=== PATIENT | male | born 1960 | race Caucasian/White ===

== ENCOUNTER → 2019-02-03 | Outpatient (REF) | payer OTHER ==
[~2019-02-03] MED LIST: ANAS0.12; ASPI325T; ATEN50TA2; FLOM0.4C39; GREEN TEA EXTRACT; KLON1TAB; LISI20TA5; LUNE2TAB; NEUR300C; OXYC5CAP4; PRAV40TA; REST30CA; RYZOLT; SERO1TAB; THERGRAN; VICO5TAB; VITA100C7; VITA400C; VITAMIN D50000 UNT; VITATAB38
== END ==
LOC: M LAB REF 11:58
PROVIDERS: ATTEND Internal Medicine
DX: Z79.899 Other long term (current) drug therapy (principal)

== ENCOUNTER → 2019-04-28 | Outpatient (REF) | payer OTHER | LOC: M LAB REF 10:08 | PROVIDERS: ATTEND Physician Assistant Medical | DX: J02.9 Acute pharyngitis, unspecified (principal) ==

== ENCOUNTER 2019-05-24 12:39 | Emergency (ER) | payer OTHER ==
[~2019-05-24] VITALS: Ht 172.7 cm; Wt 94.2 kg
[2019-05-24 14:03] LABS: ALBUMIN 4.4 GM/DL (3.2-5.2); BILIRUBIN,DIRECT 0.5 MG/DL (0.0-0.2); BILIRUBIN,TOTAL 3.8 MG/DL (0.2-1.0); CALCIUM LEVEL 9.1 MG/DL (8.8-10.2); CREATININE FOR GFR 1.65 MG/DL (0.70-1.30); GLOMERULAR FILTRATION RATE 45.5 (>49); POTASSIUM SERUM 3.7 MEQ/L (3.5-5.1); TOTAL PROTEIN 7.6 GM/DL (6.4-8.2)
[2019-05-24 14:07] LABS: BASO % 0.4 % (0.0-1.0); EOS % 0.2 % (0.0-3.0); HEMATOCRIT 43.6 % (42.0-52.0); HEMOGLOBIN 16.3 g/dl (13.5-17.5); LYMPH % 12.5 % (24.0-44.0); MEAN CORPUSCULAR HEMOGLOBIN 32.1 pg (27.0-33.0); MONO # 0.9 10^3/uL (0.0-0.8); MONO % 10.3 % (0.0-5.0); NEUTROPHILS # 6.3 10^3/uL (1.8-7.7); NEUTROPHILS % 76.2 % (36.0-66.0); PLATELET COUNT, AUTOMATED 243 10^3/uL (150-450); RED BLOOD COUNT 5.07 10^6/uL (4.30-6.10); WHITE BLOOD COUNT 8.2 10^3/uL (4.0-10.0)
[2019-05-24 14:10] LABS: MEAN CORPUSCULAR HGB CONC 37.4 g/dl (32.0-36.5)
[2019-05-24] MEDS ORDERED: ONDANSETRON 4MG/2ML VIAL (J2405) IV ONE (14:15)
[2019-05-24] MEDS ORDERED: KETOROLAC 30 MG/ML VIAL (J1885) IV ONE (14:15)
[2019-05-24] MEDS ORDERED: NS 1,000 ML IV ONE (14:45)
[2019-05-24] MEDS: GASTROGRAFIN SOLUTION 30ML PO SCH ×2 (14:52→15:36)
[2019-05-24] MEDS ORDERED: clonazePAM 1 MG TAB PO ONE (17:15)
[2019-05-24] MEDS ORDERED: BAYE325T16 PO (17:48)
[2019-05-24] MEDS ORDERED: LUTE20TA2 PO (17:48)
[2019-05-24] MEDS ORDERED: VITMTA PO (17:48)
[2019-05-24] MEDS ORDERED: LISI10TA4 PO (17:48)
[2019-05-24] MEDS ORDERED: ALLO100T PO (17:48)
[2019-05-24] MEDS ORDERED: ATOR1TAB21 PO (17:48)
[2019-05-24] MEDS ORDERED: ROCA0.5C PO (17:48)
[2019-05-24] MEDS ORDERED: DESV50TA PO (17:48)
[2019-05-24] MEDS ORDERED: FISH1000 PO (17:48)
[2019-05-24] MEDS ORDERED: POTA10TA17 PO (17:48)
[2019-05-24 19:25] VITALS: BP 158/93
--- NOTE | 2019-05-24 19:56 | HPEPDOC ---
General Date of Admission CONSULT NOTE FOR EMERGENCY ROOM - (not H&P) 05/24/19 Date of Service: May 24, 2019 Primary Care Physician: Carley Angelo Other Providers Dr Amato (nephrolgoy), Dr Grant (psychiatry-[place]) Chief Complaint The patient is a 58-year-old male admitted with a reason for visit of Rectal Pain. Source: Patient, Family Exam Limitations: No limitations History of Present Illness 58yo male presented to ED with episode of rectal pain similar to 10-12 years ago (at that time- rectal pain relief obtained with klonopin) Information obtained from patient and . Patient states he had been on klonopin 3-4 x a day until 3 weeks ago when he weaned himself off. His last dose was on 05/11/19. On 05/13/19, he had increased rectal pain , sharp with shooting pain across lower abdomen. States thought it was related to constipation (chronic over pasts 5 months) and used a colon cleanse in the shower "a few times" without relief. States he was able to feel a "lump that was bigger than my hemorrhoids" but no blood or diarrhea. Does not know when last colonscopy was. States pain is now constant with intermittent sharp shooting episode lasting 45-60 minutes.He states no sleep for past 1-2 nights because pain worsening. he states tried miralax, senna and enemas without relief. he states no nausea, no vomiting, no fever, no CP, no SOB, no symptoms. States urinary frequency because he has been increasing water intake in anticipation of nephrology appointment in June. He states intentional weight loss of 200 pounds over past 18 months with diet changes. He states he has a history of low sodium in past that is follow by Dr Amato and he has been instructed to eat extra salt. In the ED, patient was found to have hyponatremia (124) and given 1 liter IVF (NS). Hospitalist notified to admit patient for further treatment of his hyponatremia. Patient states his hyponatremia is chronic and he has a treatment session scheduled for Saturday thru Saturday with psychiatry in [place] that he can not miss. Home Medications Scheduled Aspirin (Aspirin) 325 Mg Tablet, 325 MG PO DAILY, (Reported) Atorvastatin Calcium (Atorvastatin Calcium) 20 Mg Tablet, 20 MG PO QHS, (Reported) Calcitriol (Rocaltrol) 0.5 Mcg Capsule, 0.5 MCG PO 3XW, (Reported) SAT/SAT/SAT Desvenlafaxine (Desvenlafaxine ER) 50 Mg Tab.er.24h, 50 MG PO DAILY, (Reported) Lisinopril (Lisinopril) 10 Mg Tablet, 10 MG PO BID, (Reported) Lutein (Lutein) 20 Mg Tablet, 20 MG PO DAILY, (Reported) Multivitamins (Thera M Plus Tablet) 1 Each Tablet, 1 TAB PO DAILY, (Reported) [place]-3 Fatty Acids/Fish Oil (Fish Oil 1,000 mg Capsule) 1 Each Capsule, 1,000 MG PO DAILY, (Reported) Potassium Chloride (Potassium Chloride) 10 Meq Tab.er.prt, 10 MEQ PO QHS, (Reported) Scheduled PRN Allopurinol (Allopurinol) 100 Mg Tablet, 100 MG PO DAILY PRN for GOUT FLARE, (Reported) Allergies Coded Allergies: Sulfa (Sulfonamide Antibiotics) (Verified Allergy, Unknown, hives, 05/24/19) Past Medical History Medical History Hemorrhoids Anxiety Depression Benign essential tremor CKD stage III NIDDM - diet controlled HTN Past surgical history: none Family history: father with diabetes; paternal aunts with diabetes Social history: , no tobacco, no etOH A-FIB/CHADSVASC A-FIB History Current/History of A-Fib/PAF?: No Review of Systems Other systems 10 comprehensive systems reviewed and negative except as per HPI Physical Examination General Exam: Positive: Alert, Cooperative, No Acute Distress Eye Exam: Positive: PERRLA, Conjunctiva & lids normal, EOMI ENT Exam: Positive: Atraumatic, Mucous membr. moist/pink Neck Exam: Positive: Supple, +2 carotid pulse wo bruit Chest Exam: Positive: Clear to auscultation, Normal air movement; Negative: Rales, Rhonchi, Wheezing Heart Exam: Positive: Rate Normal, Normal S1, Normal S2, Other (no murmur) Abdomen Exam: Positive: Normal bowel sounds, Soft (non tender, non distended; RECTAL EXAM- per ED note (verbal report negative) ) Extremity Exam: Positive: Normal pulses; Negative: Clubbing, Cyanosis, Edema Skin Exam: Positive: Nl turgor and temperature Neuro Exam: Positive: Normal Speech, Strength at 5/5 X4 ext, Normal Tone, Sensation Intact Psych Exam: Positive: Mental status NL, Mood NL, Anxiety, Memory Intact, Oriented x [address] ABD/PEL prelim read: NO OBSTRUCTION. No CT evidence of appendicitis OR ACUTE INFLAMMATION OR FREE AIR OR FLUID. UMBILICAL HERNIA CONTAINING FAT, NO STRANGULATION. NO INCARCERATION HERNIATED UMBILICAL FAT IS PULLING SIGMOID COLON TO APERATURE OF UMBILICAL HERNIA . FEW SUBCM GALLSTONES OR POLYPS IN NONINFLAMED GALLBLADDER [email or web address], ( Douglas, Jhonny )- 05/24/2019 4:16:29 PM Vital Signs Vital Signs Date Time Temp Pulse Resp B/P (MAP) Pulse Ox O2 Delivery O2 Flow Rate FiO2 05/24/19 17:26 99.1 79 18 192/101 (131) 100 Room Air Laboratory Data Labs 24H Laboratory Tests 2 05/24/19 13:31: Immature Granulocyte % (Auto) 0.4, White Blood Count 8.2, Red Blood Count 5.07, Hemoglobin 16.3, Hematocrit 43.6, Mean Corpuscular Volume 86.0, Mean Corpuscular Hemoglobin 32.1, Mean Corpuscular Hemoglobin Concent 37.4H, Red Cell Distribution Width 11.9, Platelet Count 243, Neutrophils (%) (Auto) 76.2H, Lymphocytes (%) (Auto) 12.5L, Monocytes (%) (Auto) 10.3H, Eosinophils (%) (Auto) 0.2, Basophils (%) (Auto) 0.4, Neutrophils # (Auto) 6.3, Lymphocytes # (Auto) 1.0L, Monocytes # (Auto) 0.9H, Eosinophils # (Auto) 0.0, Basophils # (Auto) 0.0, Nucleated Red Blood Cells % (auto) 0.0, Anion Gap 14, Glomerular Filtration Rate 45.5L, Calcium Level 9.1, Aspartate Amino Transf (AST/SGOT) 22, Alanine Am inotransferase (ALT/SGPT) 25, Alkaline Phosphatase 36L, Total Bilirubin 3.8H, Direct Bilirubin 0.5H, Total Protein 7.6, Albumin 4.4, Albumin/Globulin Ratio 1.38, Lipase 264 05/24/19 13:51: Urine Color YELLOW, Urine Appearance CLEAR, Urine pH 6.0, Urine Specific [place] 1.006, Urine Protein NEGATIVE, Urine Glucose (UA) NEGATIVE, Urine Ketones 1+H, Urine Blood NEGATIVE, Urine Nitrite NEGATIVE, Urine Bilirubin NEGATIVE, Urine Urobilinogen 0.2, Urine Leukocyte Esterase NEGATIVE, Urine WBC (Auto) 0, Urine RBC (Auto) 2, Urine Hyaline Casts (Auto) 0, Urine Bacteria (Auto) NEGATIVE, Urine Squamous Epithelial Cells 0, Urine Amorphous Sediment SMALLH, Urine Sperm (Auto) CBC/BMP Laboratory Tests 05/24/19 13:31 Red Blood Count 5.07, Mean Corpuscular Volume 86.0, Mean Corpuscular Hemoglobin 32.1, Mean Corpuscular Hemoglobin Concent 37.4 H, Red Cell Distribution Width 11.9, Neutrophils (%) (Auto) 76.2 H, Lymphocytes (%) (Auto) 12.5 L, Monocytes (%) (Auto) 10.3 H, Eosinophils (%) (Auto) 0.2, Basophils (%) (Auto) 0.4, Neutrophils # (Auto) 6.3, Lymphocytes # (Auto) 1.0 L, Monocytes # (Auto) 0.9 H, Eosinophils # (Auto) 0.0, Basophils # (Auto) 0.0 Assessment/Plan 1) proctodynia 2) Constipation / hemorrhoids with question of subjective rectal mass 3) hyponatremia due to water intoxication 4) diabetes - diet controlled not on nursing home insulin 5) CKD III 6) elevated bilirubin (possible gilbert from fasting state) 7) incidental umbilical hernia and non obstructing gallstones Plan / VTE VTE Prophylaxis Ordered?: No Plan Plan Offered to admit patient, fluid restrict for 24 hours and repeat lab in 24 hour for sodium. Patient declined due to important appointment/procedure in [place] (see H&P). He states his hyponatremia is chronic , has appointment with nephrology in next 2 weeks . He has agreed to limit his water intake over the next 24 hours to 1 liter (approx 5 cups fluid/day) and to repeat CMP on saturday with follow up at Dr Angelo office. Written and verbal instructions given to pateint and and they demonstrated good verbal understanding. Discussed with patient potential effects of hyponatremia (ie seizures, fatigue, etc) and risks vs benefits of discharge from ED today. As for his proctodynia, advised to take 1 klonopin pill tonight and follow up with psychiatry regarding klonopin use and fast taper. Discussed other treatment modalities including Nitropaste ointment CT. Declines treatment at this time. Discussed with patient that he should have GI follow up (because of constipation , hemorrhoids and questionable subjective rectal mass) but that this can be arranged thru his PCP office as patient is declining admission. Advised that if he develops rectal bleeding to return to ED. Patient is being discharged in stable condition with written instructions and copy of his labs. Instructions: 1) fluid restrict x 24 hours to 1 liter 2) Saturday05/26/19 non fasting lab (CMP) 3) follow up with Dr Angelo this week 4) keep appointment with psychiatry for procedure this week 5) keep appointment with nephrology 6) return if ED if seizures, worsening pain or rectal bleeding Patient seen and evaluated from 1800 to 1840 ARTHUR CARCMAO DO May 24, 2019 17:38
--- NOTE | 2019-05-25 09:42 | REP ---
CT ABDOMEN AND PELVIS WITH ORAL AND IV CONTRAST: CT ABDOMEN AND PELVIS WITH AND WITHOUT CONTRAST: TECHNIQUE: Axial noncontrast images through the abdomen followed by contrast-enhanced images through the abdomen and pelvis using 100 mL Isovue 370 intravenous contrast material, with coronal and sagittal reformations. Visualized lung bases demonstrate no infiltrate. Fracture of the lower left ribs is noted. No mass is seen in the liver. There are a few hyperdensities along the inner wall of the gallbladder representing a few small gallstones or polyps. The spleen is unremarkable and normal in size. The adrenals and pancreas are unremarkable. Lobulations are seen of the renal cortex bilaterally. There is a left renal cyst laterally and somewhat inferiorly measuring 3 cm in diameter. There is no hydronephrosis. There is atherosclerotic calcification of the abdominal aorta without aneurysm. There is no adenopathy. There is no free air or free fluid. There is no bowel wall thickening. There is no evidence of appendicitis. There is an umbilica hernia containing fat without evidence of incarceration. The urinary bladder is mildly distended and grossly unremarkable. There are degenerative changes of the spine. The sigmoid colon is noted to be displaced to the anterior abdominal wall region at the aperture of the umbilical hernia. The herniated fat is pulling the sigmoid colon to this location. IMPRESSION: No evidence of acute appendicitis or acute bowel inflammation. No free air or free fluid. Umbilical hernia containing fat without evidence of strangulation. There are a few subcentimeter gallstones or polyps in the gallbladder without gallbladder wall edema or biliary dilatation. The sigmoid colon is noted to be displaced to the anterior abdominal wall region at the aperture of the umbilical hernia. The herniated fat is pulling the sigmoid colon to this location. Electronically Signed by Robi Lockhart MD 05/26/2019 01:19 P
== END 2019-05-24 19:27 | disposition home or self-care (01) ==
LOC: M ED 12:39
DX: E87.1 Hypo-osmolality and hyponatremia (principal); R10.9 Unspecified abdominal pain; K80.10 Calculus of gallbladder with chronic cholecystitis without obstruction; K62.89 Other specified diseases of anus and rectum; K64.9 Unspecified hemorrhoids; K59.00 Constipation, unspecified; E80.6 Other disorders of bilirubin metabolism; K42.9 Umbilical hernia without obstruction or gangrene; F41.9 Anxiety disorder, unspecified; F32.9 Major depressive disorder, single episode, unspecified; G25.0 Essential tremor; N18.3 Chronic kidney disease, stage 3 (moderate); E11.22 Type 2 diabetes mellitus with diabetic chronic kidney disease; I12.9 Hypertensive chronic kidney disease with stage 1 through stage 4 chronic kidney disease, or unspecified chronic kidney disease; Z88.2 Allergy status to sulfonamides; N40.0 Benign prostatic hyperplasia without lower urinary tract symptoms; E78.9 Disorder of lipoprotein metabolism, unspecified; M54.5 Low back pain; Z79.899 Other long term (current) drug therapy; Z79.82 Long term (current) use of aspirin; Z87.891 Personal history of nicotine dependence
CPT/HCPCS: 74177; 80048; 80076; 81001; 83690; 85025; 96361; 96374; 96375; 99284; J1885; J2405; Q9963

== ENCOUNTER → 2019-06-04 | Outpatient (REF) | payer OTHER ==
[~2019-06-04] MED LIST changes: +ALLO100T PO; +ATOR1TAB21 PO; +BAYE325T16 PO; +DESV50TA PO; +FISH1000 PO; +LISI10TA4 PO; +LUTE20TA2 PO; +POTA10TA17 PO; +ROCA0.5C PO; +VITMTA PO
[2019-06-04 18:47] LABS: FREE T4 1.38 NG/DL (0.76-1.46); THYROID STIMULATING HORMONE 1.17 uIU/ML (0.358-3.740)
== END ==
LOC: M LAB REF 17:08
PROVIDERS: ATTEND Internal Medicine Nephrology
DX: E03.9 Hypothyroidism, unspecified (principal); E66.09 Other obesity due to excess calories

== ENCOUNTER → 2019-08-17 | Outpatient (REF) | payer OTHER | LOC: M LAB REF 16:45 | PROVIDERS: ATTEND Internal Medicine | DX: M10.9 Gout, unspecified (principal) ==

== ENCOUNTER → 2019-12-21 | Outpatient (REF) | payer OTHER ==
[2019-12-22 11:26] LABS: FOLATE 16.1 NG/ML; VITAMIN B12 LEVEL 1082 PG/ML
== END ==
LOC: M LAB REF 16:17
PROVIDERS: ATTEND Internal Medicine
DX: G31.83 Neurocognitive disorder with Lewy bodies (principal); F02.80 Dementia in other diseases classified elsewhere, unspecified severity, without behavioral disturbance, psychotic disturbance, mood disturbance, and anxiety

== ENCOUNTER 2020-03-25 16:25 | Emergency (ER) | payer OTHER ==
[~2020-03-25] VITALS: Ht 170.2 cm; Wt 94.6 kg
[2020-03-25] MEDS ORDERED: NORT50CA PO (16:34)
[2020-03-25] MEDS ORDERED: DONE10TA90 PO (16:34)
[2020-03-25] MEDS ORDERED: PANT40TA3 PO (16:34)
[2020-03-25] MEDS ORDERED: SENN8.6T28 PO (16:34)
[2020-03-25] MEDS ORDERED: CLON1TAB8 PO (16:34)
[2020-03-25 17:11] LABS: BASO % 0.5 % (0.0-1.0); EOS % 0.6 % (0.0-3.0); HEMATOCRIT 43.2 % (42.0-52.0); LYMPH # 1.4 10^3/uL (1.5-5.0); LYMPH % 21.2 % (24.0-44.0); MEAN CORPUSCULAR HEMOGLOBIN 30.9 pg (27.0-33.0); MEAN CORPUSCULAR HGB CONC 34.7 g/dl (32.0-36.5); MEAN CORPUSCULAR VOLUME 89.1 fl (80.0-96.0); MONO # 0.6 10^3/uL (0.0-0.8); MONO % 8.3 % (0.0-5.0); NEUTROPHILS # 4.6 10^3/uL (1.5-8.5); NEUTROPHILS % 69.2 % (36.0-66.0); PLATELET COUNT, AUTOMATED 154 10^3/uL (150-450); RED BLOOD COUNT 4.85 10^6/uL (4.30-6.10); WHITE BLOOD COUNT 6.6 10^3/uL (4.0-10.0)
[2020-03-25] MEDS ORDERED: ISOVUE-370 76% 100ML VIAL As Ordered ONE (17:18)
[2020-03-25 17:41] LABS: ALBUMIN 3.4 GM/DL (3.2-5.2); BILIRUBIN,DIRECT 0.3 MG/DL (0.0-0.2); BILIRUBIN,TOTAL 1.6 MG/DL (0.2-1.0); TOTAL PROTEIN 6.5 GM/DL (6.4-8.2)
--- NOTE | 2020-03-25 18:09 | REPVR ---
PROCEDURE INFORMATION: Exam: CT Abdomen And Pelvis With Contrast Exam date and time: 03/25/2020 5:25 PM Age: 59 years old Clinical indication: Abdominal pain; Localized; Lower; Additional info: Lower abd pain x2 months R/O infectious process TECHNIQUE: Imaging protocol: Computed tomography of the abdomen and pelvis with intravenous contrast. Radiation optimization: All CT scans at this facility use at least one of these dose optimization techniques: automated exposure control; mA and/or kV adjustment per patient size (includes targeted exams where dose is matched to clinical indication); or iterative reconstruction. Contrast material: ISOVUE 370; Contrast volume: 100 ml; Contrast route: IV; COMPARISON: CT ABD/PEL W/IV ORAL CONTRAS 05/24/2019 4:09 PM FINDINGS: Liver: Normal. No mass. Gallbladder and bile ducts: Gallstones present within the gallbladder. Pancreas: Normal. No ductal dilation. Spleen: 2.6 cm accessory spleen inferior to the splenic hilum. Adrenals: Normal. No mass. Kidneys and ureters: 3.8 cm simple cyst arising from the mid lower pole left kidney. Subcentimeter low-density lesions in the lower pole right kidney not fully characterized due to their small size. 7 mm cortical cyst midportion left kidney. Stomach and bowel: Colonic interposition between the liver and the anterior abdominal wall. Scattered colonic diverticula. Enhancment of the mucosal surface of the recto anal junction. Very mild prominence of the Vasa recta serving the rectosigmoid colon Appendix: No evidence of appendicitis. Intraperitoneal space: Unremarkable. No free air. No significant fluid collection. Vasculature: Unremarkable. No abdominal aortic aneurysm. Lymph nodes: Unremarkable. No enlarged lymph nodes. Bladder: Unremarkable as visualized. Reproductive: Prostate measures 3.6 by 6.1 by 3.3 cm. Bones/joints: Pseudoarthrosis of a left rib fracture at the level of the 8th rib laterally. Soft tissues: There is an infraumbilical midline abdominal hernia containing fat. At the mouth of the hernia there is stranding of the mesenteric fat as it enters the hernia sac. IMPRESSION: 1. Infraumbilical hernia containing fat with stranding/inflammation of the fat as it enters the hernia sac. Vascular congestion is a possibility but is unchanged from previous. 2. Mild mucosal enhancement at the rectal anal junction. Mild prominence of Vasa recta of the rectosigmoid colon. Inflammatory bowel disease among the diagnostic considerations. 3. Gallstones in the gallbladder. 4. Bilateral simple renal cysts without change. Mild degenerative changes in the thoracolumbar spine. No follow-up recommended 5.Scattered colonic diverticula. Electronically signed by: Maritza Adkins On 03/25/2020 18:09:20 PM
[2020-03-25] MEDS ORDERED: MEDR4PAK PO (18:37)
[2020-03-25 19:05] VITALS: BP 136/61
[2020-04-07] MEDS ORDERED: VITA80003 PO (10:30)
[2020-04-07] MEDS ORDERED: VITA100T59 PO (10:30)
[2020-04-07] MEDS ORDERED: VITA-157 PO (10:30)
[2020-04-07] MEDS ORDERED: MIRA3350 PO (10:30)
== END 2020-03-25 19:07 | disposition home or self-care (01) ==
LOC: M ED 16:25
DX: R93.5 Abnormal findings on diagnostic imaging of other abdominal regions, including retroperitoneum (principal); K58.9 Irritable bowel syndrome, unspecified; K51.90 Ulcerative colitis, unspecified, without complications
CPT/HCPCS: 74177; 80047; 80076; 81001; 83690; 85025; 99284; Q9967

== ENCOUNTER → 2020-04-10 | Outpatient (CLI) | payer OTHER ==
[~2020-04-10] MED LIST changes: +CLON1TAB8 PO; +DONE10TA90 PO; +MEDR4PAK PO; +MIRA3350 PO; +NORT50CA PO; +PANT40TA3 PO; +SENN8.6T28 PO; +VITA-157 PO; +VITA100T59 PO; +VITA80003 PO
== END ==
LOC: M LABSMTC 10:13
PROVIDERS: ATTEND Anesthesiology
DX: Z03.818 Encounter for observation for suspected exposure to other biological agents ruled out (principal); Z11.59 Encounter for screening for other viral diseases
CPT/HCPCS: C9803; U0003

== ENCOUNTER 2020-04-13 12:15 | Day surgery (SDC) | payer OTHER ==
[~2020-04-13] VITALS: Ht 170.2 cm; Wt 91.6 kg
[~2020-04-13 12:15] MED LIST changes: +NS 1,000 ML IV ONE
--- NOTE | 2020-04-13 13:23 | ROOR ---
Patient Name: Andre Daily Procedure Date: 04/13/2020 1:07 PM Date of : 1960 Age: 59 Room: [facility] Gender: Male Note Status: Finalized Procedure: Upper Endoscopy + Biopsies Indications: Lower abdominal pain, Abnormal CT of the GI tract, Weight loss Providers: Edin Gross MD Referring MD: Carley NOEL MD Requesting Provider: Medicines: Monitored Anesthesia Care Complications: No immediate complications. Procedure: Pre-Anesthesia Assessment: - The heart rate, respiratory rate, oxygen saturations, blood pressure, adequacy of pulmonary ventilation, and response to care were monitored throughout the procedure. The Endoscope was introduced through the mouth, and advanced to the second part of duodenum. The upper GI endoscopy was accomplished without difficulty. The patient tolerated the procedure well. Findings: The Z-line was regular and was found 40 cm from the incisors. Localized mild inflammation characterized by congestion (edema) and erythema was found on the greater curvature of the stomach. Biopsies were taken with a cold forceps for Helicobacter pylori testing. The exam of the duodenum was otherwise normal. Impression: - Z-line regular, 40 cm from the incisors. - Mucosal changes suspicious for gastritis. Biopsied. Recommendation: - Patient has a contact number available for emergencies. The signs and symptoms of potential delayed complications were discussed with the patient. Return to normal activities tomorrow. Written discharge instructions were provided to the patient. - Discharge patient to home. - Continue present medications. - Await pathology results. - Telephone GI clinic for pathology results in 1 week. - Return to referring physician. - The findings and recommendations were discussed with the patient's family. Edin Gross MD Edin Gross MD 04/13/2020 1:23:08 PM Electronically signed by Edin Gross MD Number of Addenda: 0 Note Initiated On: 04/13/2020 1:07 PM Estimated Blood Loss: Estimated blood loss: none.
--- NOTE | 2020-04-13 13:44 | ROOR ---
Patient Name: Andre Daily Procedure Date: 04/13/2020 1:08 PM Date of : 1960 Age: 59 Room: [facility] Gender: Male Note Status: Finalized Procedure: Total Colonoscopy to Cecum Indications: Lower abdominal pain, Weight loss Providers: Edin Gross MD Referring MD: Carley NOEL MD Requesting Provider: Medicines: Monitored Anesthesia Care Complications: No immediate complications. Procedure: Pre-Anesthesia Assessment: - The heart rate, respiratory rate, oxygen saturations, blood pressure, adequacy of pulmonary ventilation, and response to care were monitored throughout the procedure. The Colonoscope was introduced through the anus and advanced to the cecum, identified by appendiceal orifice and ileocecal valve. The colonoscopy was performed without difficulty. The patient tolerated the procedure well. The quality of the bowel preparation was excellent. Findings: The perianal and digital rectal examinations were normal. Non-bleeding internal hemorrhoids were found during retroflexion. The hemorrhoids were small and Grade I (internal hemorrhoids that do not prolapse). Scattered small-mouthed diverticula were found in the recto-sigmoid colon, sigmoid colon and descending colon. The exam was otherwise without abnormality on direct and retroflexion views. Impression: - Non-bleeding internal hemorrhoids. - Diverticulosis in the recto-sigmoid colon, in the sigmoid colon and in the descending colon. - The examination was otherwise normal on direct and retroflexion views. - No specimens collected. - The exam was otherwise normal to the cecum. Recommendation: - Patient has a contact number available for emergencies. The signs and symptoms of potential delayed complications were discussed with the patient. Return to normal activities tomorrow. Written discharge instructions were provided to the patient. - High fiber diet. - Discharge patient to home. - Continue present medications. - Repeat colonoscopy in 10 years for screening purposes. - Return to referring physician. - The findings and recommendations were discussed with the patient's family. Edin Gross MD Edin Gross MD 04/13/2020 1:43:52 PM Electronically signed by Edin Gross MD Number of Addenda: 0 Note Initiated On: 04/13/2020 1:08 PM Estimated Blood Loss: Estimated blood loss: none.
[2020-04-13] MEDS ORDERED: propofoL 200 MG/20 ML VIAL As Ordered ONE (13:48)
[2020-04-13 14:13] VITALS: BP 135/86
== END 2020-04-13 14:30 | disposition home or self-care (01) ==
LOC: M OPP 12:15
PROVIDERS: ATTEND Internal Medicine Gastroenterology
DX: K57.30 Diverticulosis of large intestine without perforation or abscess without bleeding (principal); K64.0 First degree hemorrhoids; R10.30 Lower abdominal pain, unspecified; R63.4 Abnormal weight loss; K31.89 Other diseases of stomach and duodenum; R93.3 Abnormal findings on diagnostic imaging of other parts of digestive tract; G47.30 Sleep apnea, unspecified; Z79.899 Other long term (current) drug therapy; Z88.2 Allergy status to sulfonamides

== ENCOUNTER → 2020-06-10 | Outpatient (REF) | payer OTHER ==
[~2020-06-10] MED LIST changes: -NS 1,000 ML IV ONE; +PANT40TA29 PO; -PANT40TA3 PO
[2020-07-26 23:22] LABS: FREE THYROXINE INDEX 3.5 % (1.4-3.8); HEMOGLOBIN A1c 5.4 %; MAGNESIUM LEVEL 2.1 MG/DL (1.8-2.4); THYROID STIMULATING HORMONE 1.58 uIU/ML (0.358-3.740); THYROXINE (T4) 10.2 UG/DL (4.5-12.0)
== END ==
LOC: M LAB REF 09:40
PROVIDERS: ATTEND Internal Medicine
DX: R63.4 Abnormal weight loss (principal); E11.22 Type 2 diabetes mellitus with diabetic chronic kidney disease; I12.9 Hypertensive chronic kidney disease with stage 1 through stage 4 chronic kidney disease, or unspecified chronic kidney disease

== ENCOUNTER → 2020-06-16 | Outpatient (REF) | payer OTHER | LOC: M LAB REF 07:59 | PROVIDERS: ATTEND Internal Medicine | DX: Z79.899 Other long term (current) drug therapy (principal) ==

== ENCOUNTER → 2020-08-02 | Outpatient (REF) | payer OTHER | LOC: M LAB REF 12:20 | PROVIDERS: ATTEND Internal Medicine | DX: Z79.899 Other long term (current) drug therapy (principal) ==

== ENCOUNTER → 2020-09-09 | Outpatient (REF) | payer OTHER | LOC: M LAB REF 16:15 | PROVIDERS: ATTEND Internal Medicine | DX: Z51.81 Encounter for therapeutic drug level monitoring (principal); Z79.899 Other long term (current) drug therapy ==

== ENCOUNTER 2021-07-03 15:10 | Outpatient (RCR) | payer OTHER ==
[~2021-07-03 15:10] MED LIST changes: +LISI10TA22 PO; -LISI10TA4 PO; -VITA-157 PO; +VITAE40CA PO
== END 2021-07-04 ==
LOC: M PT 15:10
PROVIDERS: ATTEND Internal Medicine
DX: G31.83 Neurocognitive disorder with Lewy bodies (principal); Z73.6 Limitation of activities due to disability

== ENCOUNTER 2021-07-21 14:15 | Outpatient (RCR) | payer OTHER | END 2021-08-03 | LOC: M OT 14:15 | PROVIDERS: ATTEND Internal Medicine | DX: G31.83 Neurocognitive disorder with Lewy bodies (principal); R53.1 Weakness; R42 Dizziness and giddiness ==

== ENCOUNTER → 2021-10-16 | Outpatient (REF) | payer OTHER ==
[2021-10-16 18:54] LABS: CHOLESTEROL RISK RATIO 1.971 (<5); THYROID STIMULATING HORMONE 1.61 uIU/ML (0.358-3.740)
[2021-10-16 21:19] LABS: HEMOGLOBIN A1c 5.2 %
== END ==
LOC: M LAB REF 16:55
PROVIDERS: ATTEND Internal Medicine
DX: I10 Essential (primary) hypertension (principal); E78.00 Pure hypercholesterolemia, unspecified; E11.22 Type 2 diabetes mellitus with diabetic chronic kidney disease; Z12.5 Encounter for screening for malignant neoplasm of prostate
CPT/HCPCS: 80061; 83036; 84443; G0103

== ENCOUNTER → 2023-05-03 | Outpatient (REF) | payer OTHER ==
[~2023-05-03] MED LIST changes: +POTA-150 PO; -POTA10TA17 PO
[2023-05-03 18:08] LABS: MAGNESIUM LEVEL 2.1 MG/DL (1.8-2.4)
[2023-05-03 18:10] LABS: HEMOGLOBIN A1c 5.3 % (4.0-6.0)
[2023-05-03 18:12] LABS: THYROID STIMULATING HORMONE 3.071 uIU/ML (0.55-4.78)
== END ==
LOC: M LAB REF 16:51
PROVIDERS: ATTEND Internal Medicine
DX: G31.83 Neurocognitive disorder with Lewy bodies (principal); E11.22 Type 2 diabetes mellitus with diabetic chronic kidney disease

== ENCOUNTER → 2023-05-17 | Outpatient (REF) | payer OTHER | LOC: M LAB REF 16:34 | PROVIDERS: ATTEND Internal Medicine | DX: Z79.899 Other long term (current) drug therapy (principal) ==

== ENCOUNTER 2023-11-05 13:24 | Emergency (ER) | payer OTHER ==
[~2023-11-05] VITALS: Ht 172.7 cm; Wt 108.4 kg
[2023-11-05 16:01] LABS: BASO % 0.5 % (0.0-1.0); EOS # 0.1 10^3/uL (0.0-0.5); EOS % 1.3 % (0.0-3.0); HEMATOCRIT 44.9 % (42.0-52.0); LYMPH # 1.6 10^3/uL (1.5-5.0); LYMPH % 19.5 % (24.0-44.0); MEAN CORPUSCULAR HEMOGLOBIN 31.9 pg (27.0-33.0); MEAN CORPUSCULAR HGB CONC 33.4 g/dl (32.0-36.5); MEAN CORPUSCULAR VOLUME 95.5 fl (80.0-96.0); MONO # 0.8 10^3/uL (0.0-0.8); MONO % 9.9 % (2.0-8.0); NEUTROPHILS # 5.6 10^3/uL (1.5-8.5); NEUTROPHILS % 68.6 % (36.0-66.0); PLATELET COUNT, AUTOMATED 153 10^3/uL (150-450); WHITE BLOOD COUNT 8.2 10^3/uL (4.0-10.0)
[2023-11-05 16:34] LABS: ALKALINE PHOSPHATASE 67 U/L (46-116); ALT/SGPT < 9 U/L (7.0-40); AST/SGOT 20 U/L (<34); BILIRUBIN,DIRECT 0.2 MG/DL (<0.4); BLOOD UREA NITROGEN 32 MG/DL (9-23); CALCIUM LEVEL 9.4 MG/DL (8.3-10.6); CARBON DIOXIDE LEVEL 32 MMOL/L (20-31); CHLORIDE LEVEL 103 MMOL/L (98-107); CK-MB VALUE MASS 1.4 NG/ML (<3.6); CPK CREATINE PHOSPHOKINASE 116 U/L (46-171); CREATININE FOR GFR 1.26 MG/DL (0.70-1.30); GLOMERULAR FILTRATION RATE > 60.0 (>49); GLUCOSE, FASTING 133 MG/DL (74-106); POTASSIUM SERUM 3.8 MMOL/L (3.5-5.1); SODIUM LEVEL 140 MMOL/L (136-145); TOTAL PROTEIN 7.3 G/DL (5.7-8.2)
[2023-11-05 16:36] LABS: FREE T4 1.23 NG/DL (0.89-1.76); THYROID STIMULATING HORMONE 1.427 uIU/ML (0.55-4.78)
[2023-11-05 17:34] LABS: INR 1.08; PROTHROMBIN TIME 13.7 SECONDS (12.5-14.5)
[2023-11-05 17:35] LABS: PARTIAL THROMBOPLASTIN TIME 28.4 SECONDS (24.8-34.2)
[2023-11-05] MEDS ORDERED: ELIQ5TAB PO (17:57)
[2023-11-05 18:04] VITALS: BP 152/86; TEMP 97; O2SAT 100
== END 2023-11-05 18:11 | disposition home or self-care (01) ==
LOC: M ED 13:24
DX: I82.412 Acute embolism and thrombosis of left femoral vein (principal); I12.9 Hypertensive chronic kidney disease with stage 1 through stage 4 chronic kidney disease, or unspecified chronic kidney disease; E11.9 Type 2 diabetes mellitus without complications; E78.5 Hyperlipidemia, unspecified; N18.9 Chronic kidney disease, unspecified; G20.C Parkinsonism, unspecified; G31.83 Neurocognitive disorder with Lewy bodies; Z88.2 Allergy status to sulfonamides; Z88.8 Allergy status to other drugs, medicaments and biological substances; Z79.899 Other long term (current) drug therapy

== ENCOUNTER 2023-11-27 10:14 | Day surgery (SDC) | payer OTHER, MEDICARE ==
[~2023-11-27] VITALS: Ht 170.2 cm; Wt 104.7 kg
[~2023-11-27 10:14] MED LIST changes: +CARB25TA9 PO; +ELIQ5TAB PO; +FLUD0.1T PO; +FURO20TA2 PO; +GABA600T4 PO; +LIDOCAINE W/EPINEPHRINE 1% 20ML VIAL XX ONE; +MEMA10TA19 PO; +MIDO5TA PO; +NORT10CA2 PO; +NORT75CA2 PO; +PRIM50TA6 PO; +SODIUM BICARBONATE 8.4% INJ 50MEQ 50ML VIAL XX ONE
[2023-11-27] MEDS ORDERED: BACITRACIN OINTMENT 30GM TUBE As Ordered ONE (14:12)
[2023-11-27 15:02] VITALS: BP 127/78; TEMP 97.8; O2SAT 97
== END 2023-11-27 15:50 | disposition home or self-care (01) ==
LOC: M SDC 10:14
PROVIDERS: ATTEND Orthopaedic Surgery Hand Surgery
DX: M65.4 Radial styloid tenosynovitis [de Quervain] (principal)

== ENCOUNTER → 2024-01-29 | Outpatient (REF) | payer OTHER, MEDICARE ==
[~2024-01-29] MED LIST changes: -LIDOCAINE W/EPINEPHRINE 1% 20ML VIAL XX ONE; -SODIUM BICARBONATE 8.4% INJ 50MEQ 50ML VIAL XX ONE
[2024-01-29 17:53] LABS: APPEARANCE, URINE CLEAR (CLEAR); BACTERIA, URINE AUTO NEGATIVE (NEGATIVE); BILIRUBIN, URINE AUTO NEGATIVE (NEGATIVE); BLOOD, URINE BLOOD NEGATIVE (NEGATIVE); COLOR, URINE COLORLESS (YELLOW); GLUCOSE, URINE (UA) AUTO NEGATIVE (NEGATIVE); KETONE, URINE AUTO NEGATIVE (NEGATIVE); LEUKOCYTE ESTERASE, URINE AUTO NEGATIVE (NEGATIVE); NITRITE, URINE AUTO NEGATIVE (NEGATIVE); PROTEIN, URINE AUTO NEGATIVE (NEGATIVE); RBC, URINE AUTO 0 /HPF (0-3); SPECIFIC GRAVITY URINE AUTO 1.002 (1.002-1.035); SQUAMOUS EPITHELIAL CELL UR AU 0 /HPF (0-6); UROBILINOGEN, URINE AUTO 0.2 mg/dL (0.0-2.0); WBC, URINE AUTO 0 /HPF (0-3)
== END ==
LOC: M LAB REF 17:20
PROVIDERS: ATTEND Internal Medicine
DX: R30.0 Dysuria (principal)

== ENCOUNTER → 2024-03-09 | Outpatient (REF) | payer OTHER, MEDICARE ==
[~2024-03-09] MED LIST changes: +MEMA10TA PO; -MEMA10TA19 PO
[2024-03-09 17:17] LABS: APPEARANCE, URINE CLEAR (CLEAR); BACTERIA, URINE AUTO NEGATIVE (NEGATIVE); BILIRUBIN, URINE AUTO NEGATIVE (NEGATIVE); BLOOD, URINE BLOOD NEGATIVE (NEGATIVE); COLOR, URINE STRAW (YELLOW); GLUCOSE, URINE (UA) AUTO NEGATIVE (NEGATIVE); KETONE, URINE AUTO NEGATIVE (NEGATIVE); LEUKOCYTE ESTERASE, URINE AUTO NEGATIVE (NEGATIVE); NITRITE, URINE AUTO NEGATIVE (NEGATIVE); PROTEIN, URINE AUTO NEGATIVE (NEGATIVE); RBC, URINE AUTO 0 /HPF (0-3); SPECIFIC GRAVITY URINE AUTO 1.004 (1.002-1.035); SQUAMOUS EPITHELIAL CELL UR AU 0 /HPF (0-6); UROBILINOGEN, URINE AUTO 0.2 mg/dL (0.0-2.0); WBC, URINE AUTO 0 /HPF (0-3)
[2024-03-09 17:24] LABS: HEMATOCRIT 44.8 % (42.0-52.0); HEMOGLOBIN 15.1 g/dl (13.5-17.5); MEAN CORPUSCULAR HEMOGLOBIN 30.8 pg (27.0-33.0); MEAN CORPUSCULAR HGB CONC 33.7 g/dl (32.0-36.5); MEAN CORPUSCULAR VOLUME 91.4 fl (80.0-96.0); PLATELET COUNT, AUTOMATED 169 10^3/uL (150-450); WHITE BLOOD COUNT 5.3 10^3/uL (4.0-10.0)
[2024-03-09 17:27] LABS: ALBUMIN 3.5 G/DL (3.2-5.2); ALKALINE PHOSPHATASE 59 U/L (46-116); ALT/SGPT < 9 U/L (7.0-40); AST/SGOT 17 U/L (<34); BILIRUBIN,TOTAL 0.9 MG/DL (0.3-1.2); BLOOD UREA NITROGEN 23 MG/DL (9-23); CALCIUM LEVEL 8.8 MG/DL (8.3-10.6); CARBON DIOXIDE LEVEL 34 MMOL/L (20-31); CHLORIDE LEVEL 99 MMOL/L (98-107); CHOLESTEROL LEVEL 159 MG/DL (<200); CHOLESTEROL RISK RATIO 2.46 (<5); CREATININE FOR GFR 1.22 MG/DL (0.70-1.30); GLOMERULAR FILTRATION RATE > 60.0 (>49); GLUCOSE, FASTING 85 MG/DL (74-106); HDL CHOLESTEROL 64.5 MG/DL (>40); LDL CHOLESTEROL 74.3 MG/DL (<100); NON-HDL-C 94.5 MG/DL; PHOSPHORUS LEVEL 4.1 MG/DL (2.4-5.1); POTASSIUM SERUM 3.5 MMOL/L (3.5-5.1); SODIUM LEVEL 138 MMOL/L (136-145); TOTAL PROTEIN 6.8 G/DL (5.7-8.2); TRIGLYCERIDES LEVEL 101 MG/DL (<150)
[2024-03-09 17:28] LABS: PTH INTACT 77.5 PG/ML (18.5-88.0)
[2024-03-09 17:31] LABS: THYROID STIMULATING HORMONE 2.042 uIU/ML (0.55-4.78)
[2024-03-09 17:33] LABS: URIC ACID 6.2 MG/DL (3.7-9.2)
[2024-03-09 17:37] LABS: CREATININE, URINE 30.8 MG/DL
[2024-03-09 17:39] LABS: MAU/CREAT RATIO 19.4 MCG/MG (0.0-30.0)
[2024-03-09 17:47] LABS: HEMOGLOBIN A1c 5.3 % (4.0-6.0)
== END ==
LOC: M SHH 15:36
PROVIDERS: ATTEND Internal Medicine
DX: N18.31 Chronic kidney disease, stage 3a (principal); E66.09 Other obesity due to excess calories; R63.4 Abnormal weight loss; R53.1 Weakness; G62.9 Polyneuropathy, unspecified

== ENCOUNTER → 2024-05-13 | Outpatient (REF) | payer OTHER, MEDICARE ==
[2024-05-13 13:50] LABS: HEMATOCRIT 45.2 % (42.0-52.0); HEMOGLOBIN 15.5 g/dl (13.5-17.5); MEAN CORPUSCULAR HEMOGLOBIN 32.2 pg (27.0-33.0); MEAN CORPUSCULAR HGB CONC 34.3 g/dl (32.0-36.5); MEAN CORPUSCULAR VOLUME 93.8 fl (80.0-96.0); PLATELET COUNT, AUTOMATED 155 10^3/uL (150-450); RED BLOOD COUNT 4.82 10^6/uL (4.30-6.10); WHITE BLOOD COUNT 5.4 10^3/uL (4.0-10.0)
[2024-05-13 14:14] LABS: ALBUMIN 3.7 G/DL (3.2-5.2); ALKALINE PHOSPHATASE 61 U/L (46-116); ALT/SGPT 10 U/L (7.0-40); AST/SGOT < 8 U/L (<34); BILIRUBIN,TOTAL 0.7 MG/DL (0.3-1.2); BLOOD UREA NITROGEN 23 MG/DL (9-23); CALCIUM LEVEL 9.3 MG/DL (8.3-10.6); CARBON DIOXIDE LEVEL 30 MMOL/L (20-31); CHLORIDE LEVEL 106 MMOL/L (98-107); CREATININE FOR GFR 1.28 MG/DL (0.70-1.30); GLUCOSE, FASTING 87 MG/DL (74-106); MAGNESIUM LEVEL 2.3 MG/DL (1.8-2.4); SODIUM LEVEL 142 MMOL/L (136-145); TOTAL PROTEIN 6.6 G/DL (5.7-8.2)
[2024-05-13 15:27] LABS: APPEARANCE, URINE CLEAR (CLEAR); BACTERIA, URINE AUTO NEGATIVE (NEGATIVE); BILIRUBIN, URINE AUTO NEGATIVE (NEGATIVE); BLOOD, URINE BLOOD NEGATIVE (NEGATIVE); COLOR, URINE YELLOW (YELLOW); GLUCOSE, URINE (UA) AUTO NEGATIVE (NEGATIVE); KETONE, URINE AUTO NEGATIVE (NEGATIVE); LEUKOCYTE ESTERASE, URINE AUTO NEGATIVE (NEGATIVE); MUCUS, URINE SMALL (NEGATIVE); NITRITE, URINE AUTO NEGATIVE (NEGATIVE); PROTEIN, URINE AUTO NEGATIVE (NEGATIVE); RBC, URINE AUTO 0 /HPF (0-3); SPECIFIC GRAVITY URINE AUTO 1.011 (1.002-1.035); SQUAMOUS EPITHELIAL CELL UR AU 0 /HPF (0-6); UROBILINOGEN, URINE AUTO 0.2 mg/dL (0.0-2.0); WBC, URINE AUTO 1 /HPF (0-3)
== END ==
LOC: M SHH 12:56
PROVIDERS: ATTEND Internal Medicine
DX: N18.31 Chronic kidney disease, stage 3a (principal); E83.42 Hypomagnesemia; N39.498 Other specified urinary incontinence; R53.1 Weakness

== ENCOUNTER 2024-06-29 10:10 | Observation (INO) | payer MEDICARE ==
[~2024-06-29] VITALS: Ht 172.7 cm; Wt 92.0 kg
[2024-06-29 11:16] LABS: BASO % 0.7 % (0.0-1.0); EOS # 0.1 10^3/uL (0.0-0.5); EOS % 1.6 % (0.0-3.0); HEMATOCRIT 42.9 % (42.0-52.0); LYMPH # 1.5 10^3/uL (1.5-5.0); LYMPH % 26.5 % (24.0-44.0); MEAN CORPUSCULAR HEMOGLOBIN 32.5 pg (27.0-33.0); MEAN CORPUSCULAR VOLUME 93.1 fl (80.0-96.0); MONO # 0.4 10^3/uL (0.0-0.8); MONO % 7.3 % (2.0-8.0); NEUTROPHILS # 3.5 10^3/uL (1.5-8.5); NEUTROPHILS % 63.7 % (36.0-66.0); PLATELET COUNT, AUTOMATED 207 10^3/uL (150-450); RED BLOOD COUNT 4.61 10^6/uL (4.30-6.10); WHITE BLOOD COUNT 5.5 10^3/uL (4.0-10.0)
[2024-06-29 11:51] LABS: BLOOD UREA NITROGEN 22 MG/DL (9-23); CALCIUM LEVEL 9.5 MG/DL (8.3-10.6); CARBON DIOXIDE LEVEL 25 MMOL/L (20-31); CHLORIDE LEVEL 100 MMOL/L (98-107); CREATININE FOR GFR 1.88 MG/DL (0.70-1.30); GLOMERULAR FILTRATION RATE 38.5 (>49); GLUCOSE, FASTING 93 MG/DL (74-106); POTASSIUM SERUM 3.4 MMOL/L (3.5-5.1); SODIUM LEVEL 136 MMOL/L (136-145)
[2024-06-29 11:53] LABS: THYROID STIMULATING HORMONE 1.791 uIU/ML (0.55-4.78)
[2024-06-29 12:14] LABS: ALBUMIN 3.8 G/DL (3.2-5.2); ALKALINE PHOSPHATASE 108 U/L (46-116); ALT/SGPT < 9 U/L (7.0-40); AST/SGOT 15 U/L (<34); BILIRUBIN,DIRECT 0.3 MG/DL (<0.4); MAGNESIUM LEVEL 2.1 MG/DL (1.8-2.4); TOTAL PROTEIN 6.8 G/DL (5.7-8.2)
[2024-06-29] MEDS: NS 1,000 ML IV ONE (12:26)
[2024-06-29] MEDS ORDERED: MAALOX 30 ML SUSP *UDC PO PRN (16:00)
[2024-06-29] MEDS ORDERED: ACETAMINOPHEN TAB 650MG DOSE (2X325MG) PO PRN (16:00)
[2024-06-29] MEDS ORDERED: MOM 30ML SUSPENSION UDC PO PRN (16:00)
[2024-06-29] MEDS: NS 1,000 ML IV SCH (16:22)
[2024-06-29 17:02] LABS: PROCALCITONIN 0.24 ng/ml
[2024-06-29 17:33] VITALS: BP 130/70; TEMP 98; O2SAT 96
[2024-06-29] MEDS: POTASSIUM CHLORIDE 10MEQ SR TABLET PO ONE (18:17)
[2024-06-29 19:09] VITALS: BP 127/77; TEMP 97.5
[2024-06-29] MEDS ORDERED: GABAPENTIN 100 MG CAP PO PRN (20:05)
[2024-06-29] MEDS ORDERED: clonazePAM 0.5 MG TAB PO PRN (20:05)
[2024-06-29] MEDS ORDERED: MIRALAX *UNIT DOSE* 17GM PACKET PO PRN (20:05)
[2024-06-29] MEDS ORDERED: MULTTAB61 PO (20:13)
[2024-06-29] MEDS ORDERED: FISH1CAP26 PO (20:13)
[2024-06-29] MEDS ORDERED: PANT20TA6 PO (20:13)
[2024-06-29] MEDS ORDERED: PSYL368P9 PO (20:18)
[2024-06-29] MEDS ORDERED: GABA-1171 PO (20:18)
[2024-06-29] MEDS ORDERED: VITA400T26 PO (20:18)
[2024-06-29] MEDS ORDERED: HOME MED LIST COMPLETE! XX SCH (20:20)
[2024-06-29] MEDS ORDERED: ELIQ5TAB PO (20:27)
[2024-06-29] MEDS: APIXABAN 5 MG TAB (ELIQUIS) PO SCH (20:58)
[2024-06-29] MEDS: ATORVASTATIN 20 MG TAB PO SCH (20:59)
[2024-06-29] MEDS: PRIMIDONE 50MG TAB PO SCH (20:59)
[2024-06-29] MEDS: NORTRIPTYLINE 25 MG CAP PO SCH (20:59)
[2024-06-29] MEDS: MEMANTINE 5MG TABLET (NAMENDA) PO SCH (20:59)
[2024-06-29] MEDS: NORTRIPTYLINE 10 MG CAP PO SCH (20:59)
[2024-06-29] MEDS: SENNA 8.6 MG TAB (SENOKOT) PO SCH (20:59)
[2024-06-29] MEDS: SINEMET 25-100 MG TAB PO SCH (21:00)
[2024-06-30 00:01] VITALS: BP 125/72; TEMP 97.6; O2SAT 98
[2024-06-30 04:00] VITALS: BP 141/82; TEMP 97.2; O2SAT 96
[2024-06-30 06:40] LABS: BASO % 0.5 % (0.0-1.0); EOS # 0.1 10^3/uL (0.0-0.5); EOS % 2.2 % (0.0-3.0); HEMOGLOBIN 13.1 g/dl (13.5-17.5); LYMPH # 1.6 10^3/uL (1.5-5.0); LYMPH % 29.5 % (24.0-44.0); MEAN CORPUSCULAR HEMOGLOBIN 31.5 pg (27.0-33.0); MEAN CORPUSCULAR HGB CONC 34.5 g/dl (32.0-36.5); MEAN CORPUSCULAR VOLUME 91.3 fl (80.0-96.0); MONO # 0.7 10^3/uL (0.0-0.8); MONO % 11.8 % (2.0-8.0); NEUTROPHILS # 3.1 10^3/uL (1.5-8.5); NEUTROPHILS % 55.8 % (36.0-66.0); PLATELET COUNT, AUTOMATED 159 10^3/uL (150-450); RED BLOOD COUNT 4.16 10^6/uL (4.30-6.10); WHITE BLOOD COUNT 5.5 10^3/uL (4.0-10.0)
[2024-06-30 07:29] LABS: CALCIUM LEVEL 8.5 MG/DL (8.3-10.6); CREATININE FOR GFR 1.58 MG/DL (0.70-1.30); GLOMERULAR FILTRATION RATE 47.1 (>49); MAGNESIUM LEVEL 2.1 MG/DL (1.8-2.4); POTASSIUM SERUM 4.5 MMOL/L (3.5-5.1)
[2024-06-30 07:56] VITALS: BP 156/74; TEMP 97.4; O2SAT 97
[2024-06-30] MEDS: MIDODRINE 5 MG TAB PO SCH (07:56)
[2024-06-30] MEDS: NS 1,000 ML IV SCH (07:58)
[2024-06-30] MEDS: GABAPENTIN 300 MG CAP PO SCH (08:07)
[2024-06-30] MEDS: DONEPEZIL 5 MG TAB PO SCH (08:07)
[2024-06-30] MEDS: OMEGA-3 1000MG CAPSULE PO SCH (08:07)
[2024-06-30] MEDS: PANTOPRAZOLE 20 MG TAB PO SCH (08:07)
[2024-06-30] MEDS: MULTIVITAMINS/MINERALS THERAP 1 TAB PO SCH (08:08)
[2024-06-30] MEDS: DOCUSATE SODIUM 100MG CAPSULE PO SCH (08:08)
[2024-06-30] MEDS: FLUDROCORTISONE ACETATE 0.1 MG TAB PO SCH (08:08)
[2024-06-30] MEDS ORDERED: FURO20TA2 PO (09:42)
[2024-06-30 12:15] LABS: CALCIUM LEVEL 8.5 MG/DL (8.3-10.6); CREATININE FOR GFR 1.48 MG/DL (0.70-1.30); GLOMERULAR FILTRATION RATE 50.8 (>49); POTASSIUM SERUM 3.9 MMOL/L (3.5-5.1)
[2024-07-06] MEDS ORDERED: CALCITRIOL 0.25 MCG CAP (S0169) PO SCH (09:00)
== END 2024-06-30 13:53 | disposition home health service (06) ==
LOC: M ED 10:10 → EDBD 10:10 → M ED INP 10:11 → M PCU 17:21
PROVIDERS: ADMIT Internal Medicine; ATTEND Internal Medicine
DX: R55 Syncope and collapse (principal); N17.9 Acute kidney failure, unspecified; N18.30 Chronic kidney disease, stage 3 unspecified; G20.C Parkinsonism, unspecified; G25.0 Essential tremor; R94.31 Abnormal electrocardiogram [ECG] [EKG]; E11.9 Type 2 diabetes mellitus without complications; E78.5 Hyperlipidemia, unspecified; F41.9 Anxiety disorder, unspecified; F32.A Depression, unspecified; I73.00 Raynaud's syndrome without gangrene; K64.9 Unspecified hemorrhoids; I95.1 Orthostatic hypotension; G62.9 Polyneuropathy, unspecified; Z86.718 Personal history of other venous thrombosis and embolism; R54 Age-related physical debility; M47.812 Spondylosis without myelopathy or radiculopathy, cervical region; M46.92 Unspecified inflammatory spondylopathy, cervical region; Z98.41 Cataract extraction status, right eye; Z98.42 Cataract extraction status, left eye; Z98.890 Other specified postprocedural states; Z88.2 Allergy status to sulfonamides; Z88.8 Allergy status to other drugs, medicaments and biological substances; Z79.899 Other long term (current) drug therapy; Z79.01 Long term (current) use of anticoagulants
CPT/HCPCS: 36415; 70450; 72125; 80048; 80076; 83605; 83735; 84145; 84443; 85025; 87040; 93005; 93041; 93306; 94760; 96360; 96361; 97116; 97161; 97165; 97530; 97535; 99285; G0378

== ENCOUNTER → 2024-07-02 | Outpatient (REF) | payer MEDICARE ==
[~2024-07-02] MED LIST changes: +FISH1CAP26 PO; +GABA-1171 PO; +GABA-1490 PO; -GABA600T4 PO; +MULTTAB61 PO; +PANT20TA6 PO; +PSYL368P9 PO; +VITA400T26 PO
[2024-07-02 19:15] LABS: PHOSPHORUS LEVEL 3.1 MG/DL (2.4-5.1); PTH INTACT 28.6 PG/ML (18.5-88.0)
== END ==
LOC: M LAB REF 16:34
PROVIDERS: ATTEND Internal Medicine
DX: E11.22 Type 2 diabetes mellitus with diabetic chronic kidney disease (principal)

== ENCOUNTER → 2024-11-30 | Outpatient (REF) | payer MEDICARE | LOC: M LAB REF 16:18 | PROVIDERS: ATTEND Internal Medicine | DX: N18.31 Chronic kidney disease, stage 3a (principal) ==

== ENCOUNTER → 2025-02-09 | Outpatient (REF) | payer MEDICARE | LOC: M LAB REF 17:21 | PROVIDERS: ATTEND Internal Medicine | DX: Z79.899 Other long term (current) drug therapy (principal) ==

== ENCOUNTER → 2025-02-15 | Outpatient (CLI) | payer MEDICARE | LOC: M PLAIMG 15:32 | PROVIDERS: ATTEND Internal Medicine | DX: M54.40 Lumbago with sciatica, unspecified side (principal); M47.815 Spondylosis without myelopathy or radiculopathy, thoracolumbar region ==

== ENCOUNTER → 2025-06-07 | Outpatient (REF) | payer MEDICARE ==
[2025-06-07 18:41] LABS: PHOSPHORUS LEVEL 3.4 MG/DL (2.4-5.1); PTH INTACT 48.0 PG/ML (18.5-88.0)
== END ==
LOC: M LAB REF 17:31
PROVIDERS: ATTEND Internal Medicine
DX: N18.31 Chronic kidney disease, stage 3a (principal); N18.32 Chronic kidney disease, stage 3b; M1A.30X0 Chronic gout due to renal impairment, unspecified site, without tophus (tophi)